=== PATIENT | female | born 1955 | race Caucasian/White ===

== ENCOUNTER 2017-09-10 07:42 | Day surgery (SDC) | payer BC ==
[2017-09-10] MEDS ORDERED: PROPOFOL 10 MG/ML VIAL IV ONE (07:43)
[2017-09-10] MEDS ORDERED: LIDOCAINE 1% MDV (10MG/ML) 20ML VIAL SQ ONE (07:43)
[2017-09-10] MEDS ORDERED: MIDAZOLAM HCL 2MG/2ML VIAL IV ONE (07:43)
--- NOTE | 2017-09-11 08:20 | Operative Note ---
DATE OF SURGERY: 09/10/2017 OPERATION: COLONOSCOPY to the cecum with cold biopsy forceps polypectomy x3. INDICATION: Prior history of colon polyps. Last examination was 5 years ago. She returns at this time for surveillance. ANESTHESIA: Intravenous sedation was administered by the department of anesthesiology and included Diprivan titrated to effect. PROCEDURE: Following informed consent from this alert individual including a discussion of the risks and benefits of the procedure and an opportunity for the patient to ask questions, the patient was in the left lateral decubitus position. A digital rectal examination was performed. No abnormalities were noted. Following this, the Olympus [id number] video colonoscope was inserted into the rectum without resistance. The rectal mucosa had a normal appearance with normal folds and distensibility. The colonoscope was advanced up through the bowel to the level of the cecum without much difficulty. Throughout the bowel the mucosa appeared normal, the folds were normal, and the bowel was fairly well distensible. The cecum was defined by noting the appendiceal orifice and ileocecal valve. The colon preparation was good. From the base of the cecum, the colonoscope was then slowly withdrawn. No abnormalities were detected until the sigmoid colon was reached. Within the sigmoid, there were a few small diverticula noted. Also noted at the rectosigmoid junction were 3 diminutive hyperplastic-appearing polyps each removed with biopsy forceps. Retroflexion in the rectum was endoscopically normal. The endoscope was straightened and withdrawn. The patient tolerated the procedure well and was returned to the recovery area in stable condition. IMPRESSION: 1. Mild sigmoid diverticulosis. 2. Three diminutive hyperplastic-appearing polyps removed with biopsy forceps in the rectosigmoid colon. RECOMMENDATIONS: Further recommendations will be forthcoming pending results of pathology obtained today. As always, thank you for allowing me to participate in the care of your patient. CC: YANI CORONA MD, FACP MTDD
== END 2017-09-10 10:05 | disposition home or self-care (01) ==
LOC: HOP 07:42
PROVIDERS: ATTEND Internal Medicine Gastroenterology
DX: Z12.11 Encounter for screening for malignant neoplasm of colon (principal); Z86.010 Personal history of colon polyps; K57.30 Diverticulosis of large intestine without perforation or abscess without bleeding; D12.5 Benign neoplasm of sigmoid colon; I10 Essential (primary) hypertension; E78.00 Pure hypercholesterolemia, unspecified

== ENCOUNTER 2017-10-22 14:12 | Day surgery (SDC) | payer BC ==
[2017-10-22] MEDS ORDERED: FENTANYL PF 100MCG/2ML VIAL IV ONE (14:13)
[2017-10-22] MEDS ORDERED: PROPOFOL 10 MG/ML VIAL IV ONE (14:13)
[2017-10-22] MEDS ORDERED: LIDOCAINE 2% MDV (20MG/ML) 20ML VIAL IV ONE (14:13)
--- NOTE | 2017-10-24 17:50 | Operative Note ---
DATE OF SURGERY: 10/22/2017 OPERATION: ESOPHAGOGASTRODUODENOSCOPY with Oneil bougie dilatation. INDICATION: Oropharyngeal dysphagia to solids. The patient also with symptoms of acid reflux with pyrosis. Upper endoscopy is performed at this time for further evaluation. She does take Protonix and Prilosec 40 mg daily. ANESTHESIA: Intravenous sedation was administered by the department of anesthesiology and included Diprivan titrated to effect. PROCEDURE: Following informed consent from this alert individual, including a discussion of the risks and benefits of the procedure and an opportunity for the patient to ask questions, the patient was in the left lateral decubitus position. The Olympus [id number] video endoscope was inserted into the esophagus without resistance. Prior to entering the esophagus, the vocal cords were visualized and demonstrated some irregularity. The remainder of the posterior pharynx as visualized was unremarkable. The proximal esophagus had a normal appearance with normal folds and distensibility. Likewise, the mid and distal esophagus was free from any mucosal changes. There was a 2 cm hiatal hernia sac noted which was free from inflammatory change. The subdiaphragmatic stomach was entered and found to be normal. The pylorus was patent. The duodenal bulb, sweep and descending duodenum were examined in a serial fashion and found to be normal as well. The instrument was then withdrawn back into the body of the stomach where retroflexion accomplished following air insufflation failed to demonstrate any additional changes. The endoscope was then straightened and slowly withdrawn back through the esophagus. Again, other than the hiatal hernia, the esophagus was endoscopically unremarkable. The instrument was withdrawn. A 48 Oneil bougie was then easily passed without resistance into the esophagus. The dilator was withdrawn. The patient tolerated the procedure well and was returned to the recovery area in stable condition. IMPRESSION: 1. A 2 cm hiatal hernia. Otherwise unremarkable esophagogastroduodenoscopy without ulcerations or erosions noted. There was no stricture formation. A 48 Oneil bougie passed through the upper esophagus without any resistance. 2. There was some irregularity noted to the vocal cords. RECOMMENDATION: The patient will be arranged to have a video swallow study to further evaluate her symptoms of oropharyngeal dysphagia. She will also have an ENT evaluation of her vocal cords. Followup will also be with Dr. Crum. As always, thank you for allowing me to participate in the care of your patient. CC: YANI CRUM MD, FACP MTDD
== END 2017-10-22 17:00 | disposition home or self-care (01) ==
LOC: HOP 14:12
PROVIDERS: ATTEND Internal Medicine Gastroenterology
DX: R13.12 Dysphagia, oropharyngeal phase (principal); K44.9 Diaphragmatic hernia without obstruction or gangrene; K21.9 Gastro-esophageal reflux disease without esophagitis; I10 Essential (primary) hypertension; E78.00 Pure hypercholesterolemia, unspecified
CPT/HCPCS: 43235; 43450; 00731; J3010